=== PATIENT | female | born 1955 | race Caucasian/White ===

== ENCOUNTER 2016-09-30 17:22 | Emergency (ER) | payer OTHER, MEDICAID ==
[2016-09-30 17:28] VITALS: BP 123/68; BMI 34.9
--- NOTE | 2016-09-30 17:39 | DR.GENAD ---
HPI - PCP Primary Care Physician: miguel ángel - HPI Comment HPI Comment: PATIENT NOTED BY HOME HEALTH NURSE TO BE SOB AND APPERARING. SENT HER TO ED. SHE WEAK AND SOB AND IS NAUSEATED AND HAVING ABDOMINAL PAIN. FEVER AT HOME. COUGHING AND SLIGHTLY CONGESTED. - Complaint/Symptoms Chief Complaint Doctors Comments: SOB, LOWGRADE FEVER, CONGESTION AND ABDOMINAL PAIN TIMES ONE DAY. Chief Complaint:: abd pain and flu sx ems stated that the home health aid stated she was breathing funny and called them. - Nurses notes reviewed Nurses Notes Review: Yes - Source History Provided: Patient - Mode of Arrival Mode of Arrival: Ambulatory - Timing Onset of Chief Complaint: 09/29/16 Came on: Suddenly - Duration Duration: Constant Duration: Days - Severity Severity: Moderate PMH - PMH Past Medical History: Yes Past Medical History: Diabetes, Dyslipidemia, Hypertension Past Surgical History: No - Family History History of Family Medical Conditions: Yes Family Medical History: Diabetes Mellitus, Hypertension - Social History Does patient currently use any type of tobacco product: No Have you used tobacco products in the last 12 months: No Type of Tobacco Use: None Does any household member use tobacco: No Alcohol Use: None Do you use any recreational Drugs:: No Lives With: Family Lives Where: Home - infectious screening In the last 2 months have you had wt loss of >10#?: NO Have you had fever, night sweats or hemotysis?: No Have you traveled outside the country in the last 6 months?: No Isolation: Standard ROS - Review of Systems Constitutional: Fever, Weakness, Fatigue. negative: Chills, Diaphoresis Eyes: No Symptoms Reported. negative: Eye Pain, Discharge ENTM: Nose Congestion. negative: Ear Pain, Nose Discharge, Throat Pain Respiratoy: Productive Cough, Short of Breath, Wheezing. negative: Hemoptysis Cardiovascular: No Symptoms Reported. negative: Chest Pain, Edema Gastrointestinal/Abdominal: Abdominal Pain, Nausea, Vomiting. negative: Constipation, Diarrhea Genitourinary: No Symptoms Reported. negative: Dysuria, Frequency, Hematuria Neurological: Headache, Weakness, Dizziness Musculoskeletal: Muscle Pain Integumentary: No Symptoms Reported Hematologic/Lymphatic: No Symptoms Reported Endocrine: No Symptoms Reported All Other Systems: Reviewed and Negative PE - Vital Signs Vitals: Temperature 99.2 F Pulse Rate 96 Respiratory Rate 18 Blood Pressure 123/68 O2 Sat by Pulse Oximetry 100 - General Limitations: No Limitations General Appearance: Alert - Head Head Exam: Normal Inspection - Eyes Eye exam: Normal Appearance - ENT ENT Exam: Normal External Ear Exam External Ear Exam: Normal External Inspection TM/Canal Exam: Bilateral Normal Nose Exam: Normal Nose Exam Mouth Exam: Normal Inspection Throat Exam: Normal Inspection - Neck Neck Exam: Trachea Midline. negative: Tenderness, Meningismus, Lymphadenopathy - Chest Chest Inspection: Symmetric Chest Wall Rise - Respiratory Respiratory Exam: Normal Lung Sounds Bilat Respiratory Exam: Bilateral Rhonchi, Lower Rhonchi - Cardiovascular Cardiovascular Exam: Regular Rate, Normal Rhythm, Normal Heart Sounds - Abdominal Exam Abdominal Exam: Normal Bowel Sounds, Soft. negative: Tenderness - Extremities Extremities Exam: Normal Inspection - Back Back Exam: Normal Inspection - Neurologic Neurological Exam: Alert, Oriented X3, CN II-XII Intact - Psychiatric Psychiatric Exam: Normal Affect, Normal Mood - Skin Skin Exam: Normal Color MDM - Differential Diagnosis Differential Diagnosis: BRONCHITIS, PNEUMONIA, DYSPNEA, CHF Course - Treatment Treatment: SEE ORDERS. - Education/Counseling Education/Counseling: Patient, Education Educated On: Diagnosis, Needs for Follow Up ROR - Labs Reviewed Laboratory Results Reviewed?: Yes Result Diagrams: 09/30/16 17:55 09/30/16 17:55 Laboratory: WBC 6.9 X10^3/uL (3.6-10.0) 09/30/16 17:55 RBC 4.30 X10^6/uL (3.5-5.4) 09/30/16 17:55 Hgb 12.9 g/dL (12.0-16.0) 09/30/16 17:55 Hct 38.6 % (36.0-47.0) 09/30/16 17:55 MCV 89.9 fL (80.0-100.0) 09/30/16 17:55 MCH 29.9 pg (27.0-34.0) 09/30/16 17:55 MCHC 33.3 g/dL (33.0-35.0) 09/30/16 17:55 RDW 12.8 % (11.6-16.5) 09/30/16 17:55 Plt Count 284 X10^3/uL (150.0-450.0) 09/30/16 17:55 MPV 7.7 fL (7.4-11.0) 09/30/16 17:55 Neut % 53.7 % (42.0-75.0) 09/30/16 17:55 Lymph % 29.0 % (21.0-51.0) 09/30/16 17:55 [place] % 12.6 % (0.0-13.0) 09/30/16 17:55 Eos % 3.8 % (0.9-2.9) H 09/30/16 17:55 Baso % 0.9 % (0.2-1.0) 09/30/16 17:55 Neut # 3.7 x10^3/uL (2.2-4.8) 09/30/16 17:55 Lymph # 2.0 X10^3/uL (1.3-2.9) 09/30/16 17:55 [place] # 0.9 x10^3/uL (0.3-0.8) H 09/30/16 17:55 Eos # 0.3 x10^3/uL (0.0-0.2) H 09/30/16 17:55 Baso # 0.1 X10^3/uL (0.0-0.1) 09/30/16 17:55 Absolute Nucleated RBC 0.0 /100WBC 09/30/16 17:55 Sodium 131 mmol/L (136-145) L 09/30/16 17:55 Corrected Sodium 139 mmol/L (136-145) 09/30/16 17:55 Potassium 3.9 mmol/L (3.5-5.1) 09/30/16 17:55 Chloride 96 mmol/L (98-107) L 09/30/16 17:55 Carbon Dioxide 23.7 mmol/L (21-32) 09/30/16 17:55 BUN 12 mg/dL (7-18) 09/30/16 17:55 Creatinine 0.91 mg/dL (0.55-1.02) 09/30/16 17:55 Est GFR (MDRD) Af Amer > 60 (>60) 09/30/16 17:55 Est GFR (MDRD) Non-Af > 60 (>60) 09/30/16 17:55 Glucose 422 mg/dL (65-99) H 09/30/16 17:55 Calcium 8.5 mg/dL (8.5-10.1) 09/30/16 17:55 Corrected Calcium 9.2 mg/dL (8.5-10.1) 09/30/16 17:55 Total Bilirubin 0.20 mg/dL (0.2-1.0) 09/30/16 17:55 AST 21 Units/L (15-37) 09/30/16 17:55 ALT 33 Units/L (12-78) 09/30/16 17:55 Alkaline Phosphatase 129 Units/L (46-116) H 09/30/16 17:55 Total Protein 6.9 g/dL (6.4-8.2) 09/30/16 17:55 Albumin 3.1 g/dL (3.4-5.0) L 09/30/16 17:55 Globulin 3.8 g/dL (2.5-4.5) 09/30/16 17:55 Albumin/Globulin Ratio 0.8 Ratio (1.1-2.1) L 09/30/16 17:55 Acetone, Semi-Quant Negative (NEGATIVE) 09/30/16 18:38 - XRAY XRAY Interpreted by: Radiologist XRAY Findings: REPORT DISCUSS WITH PATIENT. - Diagnosis Discharge Problem: Hyperglycemia, Bronchitis Dyspnea Qualifiers: Dyspnea type: shortness of breath Qualified Code(s): R06.02 - Shortness of breath - Discharge Plan Disposition: 01 HOME, SELF-CARE Condition: Stable Prescriptions: Amoxicillin [Amoxil 875 mg] 875 mg PO BID #14 tab - Follow ups/Referrals Follow ups/Referrals: Brian Robb [Primary Care Provider] - 3 days - Instructions Instructions: Hyperglycemia, Shortness of Breath, [id number], Acute Bronchitis
--- NOTE | 2016-09-30 18:01 | RAD ---
HISTORY: Chest pain Study: Portable chest Comparison: None Findings: The trachea is midline. The cardiac silhouette is unremarkable. The lungs are clear without focal infiltrate or effusion. The bony thorax is unremarkable. IMPRESSION: 1. No acute cardiopulmonary disease. Reported By:
[2016-09-30 18:08] LABS: BASOPHILS # (AUTO) 0.1 X10^3/uL (0.0-0.1); BASOPHILS % (AUTO) 0.9 % (0.2-1.0); EOSINOPHILS # (AUTO) 0.3 x10^3/uL (0.0-0.2); EOSINOPHILS % (AUTO) 3.8 % (0.9-2.9); HEMATOCRIT 38.6 % (36.0-47.0); HEMOGLOBIN 12.9 g/dL (12.0-16.0); MEAN CORPUSCULAR HEMOGLOBIN 29.9 pg (27.0-34.0); MEAN CORPUSCULAR HGB CONC 33.3 g/dL (33.0-35.0); MEAN CORPUSCULAR VOLUME 89.9 fL (80.0-100.0); MEAN PLATELET VOLUME 7.7 fL (7.4-11.0); MONOCYTES # (AUTO) 0.9 x10^3/uL (0.3-0.8); MONOCYTES % (AUTO) 12.6 % (0.0-13.0); NEUTROPHILS # (AUTO) 3.7 x10^3/uL (2.2-4.8); NEUTROPHILS % (AUTO) 53.7 % (42.0-75.0); PLATELET COUNT 284 X10^3/uL (150.0-450.0); RED CELL DISTRIBUTION WIDTH 12.8 % (11.6-16.5); WHITE BLOOD COUNT 6.9 X10^3/uL (3.6-10.0)
[2016-09-30 18:16] LABS: ALANINE AMINOTRANSFERASE 33 Units/L (12-78); ALBUMIN 3.1 g/dL (3.4-5.0); ALKALINE PHOSPHATASE 129 Units/L (46-116); ASPARTATE AMINO TRANSFERASE 21 Units/L (15-37); BLOOD UREA NITROGEN 12 mg/dL (7-18); CALCIUM 8.5 mg/dL (8.5-10.1); CARBON DIOXIDE 23.7 mmol/L (21-32); CHLORIDE 96 mmol/L (98-107); COR CA(FOR HYPOALB) 9.2 mg/dL (8.5-10.1); COR NA(FOR HYPERGLY) 139 mmol/L (136-145); CREATININE 0.91 mg/dL (0.55-1.02); GLUCOSE 422 mg/dL (65-99); SODIUM 131 mmol/L (136-145); TOTAL PROTEIN 6.9 g/dL (6.4-8.2); eGFR BLACK RACES > 60 (>60); eGFR NON BLACK RACES > 60 (>60)
[2016-09-30] MEDS ORDERED: HUMULIN R SUBCUT ONE (18:53)
[2016-09-30] MEDS ORDERED: AMOXIL CAP 500 MG PO ONE ×2 (19:04→19:08)
[2016-09-30] MEDS ORDERED: SNACK - Diabetic Appropriate PO SCH (20:00)
== END 2016-09-30 19:12 | disposition home or self-care (01) ==
LOC: ER 17:22
DX: J40 Bronchitis, not specified as acute or chronic (principal); R06.02 Shortness of breath; R73.9 Hyperglycemia, unspecified
CPT/HCPCS: 36415; 71010; 80053; 82009; 85025; 99283

== ENCOUNTER 2018-01-19 08:47 | Inpatient (IN) ==
--- NOTE | 2018-01-19 09:43 | RAD ---
Exam: Portable chest History: 62-year-old female with lethargy and elevated blood sugar. Hypertension. Comparison: Previous chest radiograph from 09/30/2016 Findings: Overall heart size and pulmonary vasculature within normal limits. Shallow inspiration with minimal c ompressive changes at the right base. No significant effusion on either side. Impression: Shallow inspiration. However no acute cardiopulmonary abnormality is seen on this exam Reported By:
--- NOTE | 2018-01-19 09:45 | CT ---
History: Altered mental status and elevated blood sugar Study: CT head without contrast. Sagittal and coronal reformations were provided. Comparison: None Findings: The ventricles and sulci are minimally prominent without mass effect. There is mild periven tricular white matter low attenuation. There is hyperostosis frontalis interna. There is mucosal thic kening in the maxillary and ethmoid and sphenoid sinuses. No fluid level is demonstrated. Impression: 1. No acute intracranial disease demonstrated 2. Mild paranasal sinus disease Reported By:
[2018-01-19 10:00] LABS: BILIRUBIN,URINE NEGATIVE (NEGATIVE); BLOOD/HEMOGLOBIN,URINE 1+ (NEGATIVE); GLUCOSE, URINE 3+ (NEGATIVE); KETONES,URINE 2+ (NEGATIVE); LEUKOCYTE ESTERASE ,URINE 1+ (NEGATIVE); NITRITES,URINE NEGATIVE (NEGATIVE); PROTEIN,URINE 1+ (NEGATIVE); UROBILINOGEN,URINE NORMAL (NORMAL)
[2018-01-19 10:04] LABS: BASOPHILS # (AUTO) 0.1 X10^3/uL (0.0-0.1); BASOPHILS % (AUTO) 0.3 % (0.2-1.0); HEMATOCRIT 39.6 % (36.0-47.0); HEMOGLOBIN 13.8 g/dL (12.0-16.0); LYMPHOCYTES # (AUTO) 1.8 X10^3/uL (1.3-2.9); LYMPHOCYTES % (AUTO) 9.5 % (21.0-51.0); MEAN CORPUSCULAR HEMOGLOBIN 31.7 pg (27.0-34.0); MEAN CORPUSCULAR HGB CONC 34.8 g/dL (33.0-35.0); MEAN CORPUSCULAR VOLUME 91.1 fL (80.0-100.0); MONOCYTES # (AUTO) 0.9 x10^3/uL (0.3-0.8); MONOCYTES % (AUTO) 4.6 % (0.0-13.0); NEUTROPHILS # (AUTO) 15.9 x10^3/uL (2.2-4.8); NEUTROPHILS % (AUTO) 85.6 % (42.0-75.0); PLATELET COUNT 273 X10^3/uL (150.0-450.0); RED BLOOD COUNT 4.35 X10^6/uL (3.5-5.4); RED CELL DISTRIBUTION WIDTH 13.2 % (11.6-16.5); WHITE BLOOD COUNT 18.6 X10^3/uL (3.6-10.0)
[2018-01-19 10:06] LABS: ALANINE AMINOTRANSFERASE 30 Units/L (12-78); ALKALINE PHOSPHATASE 55 Units/L (46-116); ASPARTATE AMINO TRANSFERASE 26 Units/L (15-37); BLOOD UREA NITROGEN 11 mg/dL (7-18); CALCIUM 9.4 mg/dL (8.5-10.1); CARBON DIOXIDE 22.3 mmol/L (21-32); CHLORIDE 101 mmol/L (98-107); COR CA(FOR HYPOALB) 10.2 mg/dL (8.5-10.1); COR NA(FOR HYPERGLY) 136 mmol/L (136-145); CREATININE 0.98 mg/dL (0.55-1.02); SODIUM 134 mmol/L (136-145); eGFR NON BLACK RACES > 60 (>60)
[2018-01-19 10:07] LABS: APPEARANCE,URINE SLIGHTLY HAZY (CLEAR); COLOR,URINE YELLOW (YELLOW)
[2018-01-19 10:08] LABS: BACTERIA,URINE TRACE /HPF (NEGATIVE); HYALINE CASTS, URINE FEW /LPF (NEGATIVE); MUCUS,URINE FEW /HPF (NEGATIVE); SQUAMOUS EPITHELIAL CELL,UR FEW /HPF (NEGATIVE)
[2018-01-19 10:09] LABS: PLATELET MORPHOLOGY COMMENT NORMAL (NORMAL)
--- NOTE | 2018-01-19 10:34 | DR.AMS ---
HPI Time Seen Time seen: 08:52 PCP Primary Care Physician: ELIGIO Complaint Cheif Complaint Doctors Comments: Noted to be since yesterday. FBS today was 132 / She denies polydipsia or polyuria. Chief Complaint:: PT'S FAMILY C/O PT HAS BEEN ACTING "LETHARGIC" AND HER SUGAR HAS BEEN HIGH. FAMILY STATES HER SUGAR WAS 132 THIS AM. PT'S FAMILY STATES SHE STARTED ACTING FUNNY YESTERDAY AROUND 1730. NOTED PT TO HAVE SLURRED SPEECH, WEAKNESS, FATIGUE, AND PINPOINT PUPILS. PT'S FAMILY STATES SHE IS USUALLY A INDEPENDENT PERSON. Source History Provided: Patient and Family Member Mode of Arrival Mode of Arrival: Ambulatory Timing Onset of Chief Complaint: 01/18/18 Came On: Gradually Symptoms: Unchanged Symptom Onset: Known Onset of Symptoms Start Date: 01/18/18 Associated Signs and Symptoms Associated Signs and Symptoms: Confusion PMH PMH Past Medical History: Yes Past Medical History: Diabetes, Dyslipidemia and Hypertension Past Medical History Comment: MR Past Surgical History: Yes Past Surgical History Comment: TUBALIGATION Family History History of Family Medical Conditions: Yes Family Medical History: Diabetes Mellitus and Hypertension Social History Does any household member use tobacco: No Alcohol Use: None Do you use any recreational Drugs:: No Lives With: Family Lives Where: Home infectious screening In the last 2 months have you had wt loss of >10#?: NO Have you had fever, night sweats or hemotysis?: No Have you traveled outside the country in the last 6 months?: No Isolation: Standard ROS Review of Systems Neurological: Other (congused) Integumentary: Change in Color (mid left leg is pinK ) PE Vitals Vital Signs: Temp Pulse Pulse Resp BP BP Pulse Ox 01/19/18 11:30 88 20 125/75 95 01/19/18 10:45 86 22 119/56 95 01/19/18 09:59 85 22 134/60 96 01/19/18 09:50 87 22 131/60 95 01/19/18 08:59 98 H 18 126/61 95 01/19/18 08:48 97.9 F 106 H 20 118/56 94 L 09/30/16 17:23 123/68 General Limitations: Altered Mental Status General Appearance: Alert; negative Anxious and In Distress Head Head Exam: Normal Inspection, Atraumatic, Normocephalic and Other Eyes Eye exam: Normal Appearance, PERRL and EOMI ENT ENT Exam: Normal Exam TM/Canal Exam: Bilateral: Normal Nose Exam: Normal Nose Exam; negative Sinus Tenderness Throat Exam: Normal Inspection Neck Neck Exam: Normal Inspection, Full ROM and Trachea Midline Chest Chest Inspection: Normal Inspection and Symmetric Chest Wall Rise Respiratory Respiratory Exam: Normal Lung Sounds Bilat; negative Accessory Muscle Use Cardiovascular Cardiovascular Exam: Regular Rate, Normal Rhythm, +S1 and +S2 Abdominal Exam Abdominal Exam: Normal Inspection, Normal Bowel Sounds and Soft; negative Tenderness Back Back Exam: Normal Inspection Neurological Neurological Exam: Alert Patient Oriented To: Person Speech: Fluid Speech Psychological Psychiatric Exam: Flat Affect; negative Agitated and Manic Skin Skin Exam: Dry and Erythema (Mid Lt. leg) COURSE Reevaluation 1st: Unchanged 2nd: Unchanged Consultation Consultation Comments: Admit to inpt. status for Dr. Robb. Placed her on Fort[facility] + CIpro ROR Labs Reviewed Laboratory Results Reviewed?: Yes Result Diagrams: 01/19/18 09:49 01/19/18 09:49 Laboratory: WBC 18.6 X10^3/uL (3.6-10.0) H 01/19/18 09:49 RBC 4.35 X10^6/uL (3.5-5.4) 01/19/18 09:49 Hgb 13.8 g/dL (12.0-16.0) 01/19/18 09:49 Hct 39.6 % (36.0-47.0) 01/19/18 09:49 MCV 91.1 fL (80.0-100.0) 01/19/18 09:49 MCH 31.7 pg (27.0-34.0) 01/19/18 09:49 MCHC 34.8 g/dL (33.0-35.0) 01/19/18 09:49 RDW 13.2 % (11.6-16.5) 01/19/18 09:49 Plt Count 273 X10^3/uL (150.0-450.0) 01/19/18 09:49 Plt Count Comment Adequate (ADEQUATE) 01/19/18 09:49 MPV 8.0 fL (7.4-11.0) 01/19/18 09:49 Neut % (Auto) 85.6 % (42.0-75.0) H 01/19/18 09:49 Lymph % (Auto) 9.5 % (21.0-51.0) L 01/19/18 09:49 [place] % (Auto) 4.6 % (0.0-13.0) 01/19/18 09:49 Eos % (Auto) 0.0 % (0.9-2.9) L 01/19/18 09:49 Baso % (Auto) 0.3 % (0.2-1.0) 01/19/18 09:49 Neut # (Auto) 15.9 x10^3/uL (2.2-4.8) H 01/19/18 09:49 Lymph # (Auto) 1.8 X10^3/uL (1.3-2.9) 01/19/18 09:49 [place] # (Auto) 0.9 x10^3/uL (0.3-0.8) H 01/19/18 09:49 Eos # (Auto) 0.0 x10^3/uL (0.0-0.2) 01/19/18 09:49 Baso # (Auto) 0.1 X10^3/uL (0.0-0.1) 01/19/18 09:49 Absolute Nucleated RBC 0.0 /100WBC 01/19/18 09:49 Plt Clumps, EDTA Rare 01/19/18 09:49 Plt Morphology Comment Normal (NORMAL) 01/19/18 09:49 RBC Morphology Normal (NORMAL) 01/19/18 09:49 INR Target Range - 01/19/18 10:35 INR 1.17 (0.8-1.3) 01/19/18 10:35 APTT 30.9 SECONDS (22.9-36.5) 01/19/18 10:35 PTT Comment - 01/19/18 10:35 Sodium 134 mmol/L (136-145) L 01/19/18 09:49 Corrected Sodium 136 mmol/L (136-145) 01/19/18 09:49 Potassium 4.2 mmol/L (3.5-5.1) 01/19/18 09:49 Chloride 101 mmol/L (98-107) 01/19/18 09:49 Carbon Dioxide 22.3 mmol/L (21-32) 01/19/18 09:49 BUN 11 mg/dL (7-18) 01/19/18 09:49 Creatinine 0.98 mg/dL (0.55-1.02) 01/19/18 09:49 Est GFR (MDRD) Af Amer > 60 (>60) 01/19/18 09:49 Est GFR (MDRD) Non-Af > 60 (>60) 01/19/18 09:49 Glucose 184 mg/dL (65-99) H 01/19/18 09:49 POC Glucose (mg/dL) 196 mg/dL (65-99) H 01/19/18 08:49 Calcium 9.4 mg/dL (8.5-10.1) 01/19/18 09:49 Corrected Calcium 10.2 mg/dL (8.5-10.1) H 01/19/18 09:49 Total Bilirubin 0.40 mg/dL (0.2-1.0) 01/19/18 09:49 AST 26 Units/L (15-37) 01/19/18 09:49 ALT 30 Units/L (12-78) 01/19/18 09:49 Alkaline Phosphatase 55 Units/L (46-116) 01/19/18 09:49 Creatine Kinase 621 Units/L (26-192) H 01/19/18 10:35 CK-MB (CK-2) 3.4 ng/mL (0-4.0) 01/19/18 10:35 CK/CKMB % Calc 0.6 % (<4) 01/19/18 10:35 Troponin I < 0.02 ng/mL (0-1.5) 01/19/18 10:35 Total Protein 7.0 g/dL (6.4-8.2) 01/19/18 09:49 Albumin 3.0 g/dL (3.4-5.0) L 01/19/18 09:49 Globulin 4.0 g/dL (2.5-4.5) 01/19/18 09:49 Albumin/Globulin Ratio 0.8 Ratio (1.1-2.1) L 01/19/18 09:49 Specimen Type Clean catch urine 01/19/18 09:43 Urine Color Yellow (YELLOW) 01/19/18 09:43 Urine Appearance Slightly hazy (CLEAR) 01/19/18 09:43 Urine pH 6.0 (5.0 - 8.0) 01/19/18 09:43 Ur Specific [place] 1.020 (1.000-1.030) 01/19/18 09:43 Urine Protein 1+ (NEGATIVE) 01/19/18 09:43 Urine Glucose (UA) 3+ (NEGATIVE) 01/19/18 09:43 Urine Ketones 2+ (NEGATIVE) 01/19/18 09:43 Urine Occult Blood 1+ (NEGATIVE) 01/19/18 09:43 Urine Nitrite Negative (NEGATIVE) 01/19/18 09:43 Urine Bilirubin Negative (NEGATIVE) 01/19/18 09:43 Urine Urobilinogen Normal (NORMAL) 01/19/18 09:43 Ur Leukocyte Esterase 1+ (NEGATIVE) 01/19/18 09:43 Urine RBC 3-5 /HPF (NONE SEEN) 01/19/18 09:43 Urine WBC 3-5 /HPF (NONE SEEN) 01/19/18 09:43 Ur Squamous Epith Cells Few /HPF (NEGATIVE) 01/19/18 09:43 Urine Bacteria Trace /HPF (NEGATIVE) 01/19/18 09:43 Hyaline Casts Few /LPF (NEGATIVE) 01/19/18 09:43 Urine Mucus Few /HPF (NEGATIVE) 01/19/18 09:43 Ur Culture Indicated? No/not indicated 01/19/18 09:43 XRAY XRAY Findings: Brain CT: No acute intracranial pathology, paranasal sinus dz; CXR: NAD EKG Rate: 96 [place]wl: Normal Rhythm: NSR Block: None Hypertrophy: None ST: Old (Q waves in III, aVF)
[2018-01-19 11:14] LABS: CKMB % 0.6 % (<4); CREATINE KINASE 621 Units/L (26-192); CREATINE KINASE MB 3.4 ng/mL (0-4.0); TROPONIN I < 0.02 ng/mL (0-1.5)
[2018-01-19] MEDS: LEVAQUIN PREMIX IV 500 MG 500 MG/100 ML BAG IV SCH (13:35)
[2018-01-19] MEDS: NS 1000 ML 1,000 ML IV SCH ×2 (13:35→22:03)
[2018-01-19] MEDS: DEPAKOTE D.R. TAB PO SCH ×2 (13:36→22:04)
[2018-01-19 13:58] VITALS: BMI 32.2
[2018-01-19] MEDS: TYLENOL 500 MG TAB EXTRA STRENGTH PO PRN (14:48)
[2018-01-19] MEDS: FORTAZ or TAZICEF VIAL INJ 1 G in NS 100 ML IV + SPIKE MINIBAG* 100 ML IV SCH ×2 (16:10→22:04)
[2018-01-19] MEDS ORDERED: GLUCOPHAGE ONE (20:06)
[2018-01-19] MEDS: GLUCOTROL PO SCH (20:50)
[2018-01-19] MEDS: GLUCOPHAGE PO SCH (20:50)
[2018-01-19] MEDS: THIORIDAZINE 50 MG PO SCH (20:51)
[2018-01-19] MEDS: ZETIA TAB 10 MG PO SCH (20:51)
[2018-01-19] MEDS: ZOCOR TAB 10 MG PO SCH (20:52)
[2018-01-19] MEDS ORDERED: PATIENT'S HOME MEDICATION (Simvastatin 1 TAB) PO SCH (21:00)
[2018-01-19] MEDS ORDERED: RISPERIDONE 4 MG PO SCH (21:00)
[2018-01-20] MEDS: NS 1000 ML 1,000 ML IV SCH ×3 (05:14→21:08)
[2018-01-20 05:32] LABS: BASOPHILS % (AUTO) 0.4 % (0.2-1.0); HEMATOCRIT 34.3 % (36.0-47.0); HEMOGLOBIN 11.7 g/dL (12.0-16.0); LYMPHOCYTES # (AUTO) 1.7 X10^3/uL (1.3-2.9); MEAN CORPUSCULAR HEMOGLOBIN 31.1 pg (27.0-34.0); MEAN CORPUSCULAR VOLUME 91.5 fL (80.0-100.0); MEAN PLATELET VOLUME 7.7 fL (7.4-11.0); MONOCYTES # (AUTO) 0.7 x10^3/uL (0.3-0.8); MONOCYTES % (AUTO) 5.7 % (0.0-13.0); NEUTROPHILS # (AUTO) 9.9 x10^3/uL (2.2-4.8); NEUTROPHILS % (AUTO) 79.9 % (42.0-75.0); PLATELET COUNT 232 X10^3/uL (150.0-450.0); RED BLOOD COUNT 3.75 X10^6/uL (3.5-5.4); RED CELL DISTRIBUTION WIDTH 13.2 % (11.6-16.5); WHITE BLOOD COUNT 12.4 X10^3/uL (3.6-10.0)
[2018-01-20 05:52] LABS: ALANINE AMINOTRANSFERASE 25 Units/L (12-78); ALBUMIN 2.3 g/dL (3.4-5.0); ALKALINE PHOSPHATASE 48 Units/L (46-116); ASPARTATE AMINO TRANSFERASE 23 Units/L (15-37); BLOOD UREA NITROGEN 7 mg/dL (7-18); CALCIUM 8.4 mg/dL (8.5-10.1); CARBON DIOXIDE 25.1 mmol/L (21-32); CHLORIDE 105 mmol/L (98-107); COR CA(FOR HYPOALB) 9.8 mg/dL (8.5-10.1); COR NA(FOR HYPERGLY) 138 mmol/L (136-145); CREATININE 0.85 mg/dL (0.55-1.02); SODIUM 138 mmol/L (136-145); TOTAL PROTEIN 6.1 g/dL (6.4-8.2); eGFR NON BLACK RACES > 60 (>60)
[2018-01-20] MEDS: FORTAZ or TAZICEF VIAL INJ 1 G in NS 100 ML IV + SPIKE MINIBAG* 100 ML IV SCH ×3 (06:00→21:09)
[2018-01-20] MEDS ORDERED: GLUCOPHAGE ONE ×2 (07:13→20:59)
[2018-01-20] MEDS: DEPAKOTE D.R. TAB PO SCH ×3 (08:32→21:09)
[2018-01-20] MEDS: GLUCOPHAGE PO SCH ×2 (08:33→21:08)
[2018-01-20] MEDS: GLUCOTROL PO SCH ×2 (08:34→21:08)
[2018-01-20] MEDS: LEVAQUIN PREMIX IV 500 MG 500 MG/100 ML BAG IV SCH (08:34)
[2018-01-20] MEDS: TOPROL XL PO SCH (08:35)
[2018-01-20] MEDS: RisperDAL TAB 1 MG PO SCH (08:35)
[2018-01-20] MEDS: OXYBUTYNIN CHLORIDE ER PO SCH (08:35)
[2018-01-20] MEDS: THIORIDAZINE 50 MG PO SCH ×2 (08:38→21:08)
[2018-01-20] MEDS ORDERED: PATIENT'S HOME MEDICATION (Oxybutynin Chloride [Oxybutynin Chloride] 10 MG) PO SCH (09:00)
[2018-01-20] MEDS ORDERED: EZETIMIBE PO SCH (09:00)
[2018-01-20] MEDS: HumuLIN R SUBCUT PRN (14:09)
[2018-01-20] MEDS: LOVENOX INJ 30 MG SYR SC SCH (18:14)
[2018-01-20] MEDS: SNACK - Diabetic Appropriate PO SCH (21:08)
[2018-01-20] MEDS: ZETIA TAB 10 MG PO SCH (21:08)
[2018-01-20] MEDS: ZOCOR TAB 10 MG PO SCH (21:09)
[2018-01-21] MEDS: NS 1000 ML 1,000 ML IV SCH ×3 (05:35→22:48)
[2018-01-21] MEDS: FORTAZ or TAZICEF VIAL INJ 1 G in NS 100 ML IV + SPIKE MINIBAG* 100 ML IV SCH ×3 (06:12→22:50)
[2018-01-21 06:33] LABS: BASOPHILS % (AUTO) 0.3 % (0.2-1.0); EOSINOPHILS # (AUTO) 0.1 x10^3/uL (0.0-0.2); EOSINOPHILS % (AUTO) 1.5 % (0.9-2.9); HEMATOCRIT 32.1 % (36.0-47.0); HEMOGLOBIN 11.1 g/dL (12.0-16.0); LYMPHOCYTES # (AUTO) 1.7 X10^3/uL (1.3-2.9); LYMPHOCYTES % (AUTO) 17.7 % (21.0-51.0); MEAN CORPUSCULAR HEMOGLOBIN 31.6 pg (27.0-34.0); MEAN CORPUSCULAR HGB CONC 34.5 g/dL (33.0-35.0); MEAN CORPUSCULAR VOLUME 91.7 fL (80.0-100.0); MONOCYTES # (AUTO) 0.6 x10^3/uL (0.3-0.8); MONOCYTES % (AUTO) 6.4 % (0.0-13.0); NEUTROPHILS # (AUTO) 7.3 x10^3/uL (2.2-4.8); NEUTROPHILS % (AUTO) 74.1 % (42.0-75.0); PLATELET COUNT 224 X10^3/uL (150.0-450.0); RED CELL DISTRIBUTION WIDTH 13.6 % (11.6-16.5); WHITE BLOOD COUNT 9.9 X10^3/uL (3.6-10.0)
[2018-01-21 06:39] LABS: ALANINE AMINOTRANSFERASE 26 Units/L (12-78); ALBUMIN 2.1 g/dL (3.4-5.0); ALKALINE PHOSPHATASE 53 Units/L (46-116); ASPARTATE AMINO TRANSFERASE 22 Units/L (15-37); BLOOD UREA NITROGEN 5 mg/dL (7-18); CALCIUM 8.5 mg/dL (8.5-10.1); CARBON DIOXIDE 23.5 mmol/L (21-32); CHLORIDE 107 mmol/L (98-107); CREATININE 0.63 mg/dL (0.55-1.02); SODIUM 140 mmol/L (136-145); TOTAL PROTEIN 6.2 g/dL (6.4-8.2); eGFR NON BLACK RACES > 60 (>60)
[2018-01-21] MEDS ORDERED: GLUCOPHAGE ONE ×2 (08:40→19:48)
[2018-01-21] MEDS: GLUCOPHAGE PO SCH ×2 (09:30→21:00)
[2018-01-21] MEDS: RisperDAL TAB 1 MG PO SCH (09:30)
[2018-01-21] MEDS: GLUCOTROL PO SCH ×2 (09:30→21:00)
[2018-01-21] MEDS: THIORIDAZINE 50 MG PO SCH ×2 (09:30→21:00)
[2018-01-21] MEDS: LEVAQUIN PREMIX IV 500 MG 500 MG/100 ML BAG IV SCH (09:30)
[2018-01-21] MEDS: OXYBUTYNIN CHLORIDE ER PO SCH (09:30)
[2018-01-21] MEDS: LOVENOX INJ 30 MG SYR SC SCH (09:30)
[2018-01-21] MEDS: DEPAKOTE D.R. TAB PO SCH ×3 (09:30→22:50)
[2018-01-21] MEDS: TOPROL XL PO SCH (09:30)
[2018-01-21] MEDS: ZETIA TAB 10 MG PO SCH (21:00)
[2018-01-21] MEDS: SNACK - Diabetic Appropriate PO SCH (21:00)
[2018-01-21] MEDS: ZOCOR TAB 10 MG PO SCH (21:00)
[2018-01-22] MEDS: NS 1000 ML 1,000 ML IV SCH ×2 (05:22→14:06)
[2018-01-22] MEDS: DEPAKOTE D.R. TAB PO SCH ×2 (06:11→14:09)
[2018-01-22] MEDS: FORTAZ or TAZICEF VIAL INJ 1 G in NS 100 ML IV + SPIKE MINIBAG* 100 ML IV SCH ×2 (06:11→14:09)
[2018-01-22 06:24] LABS: BASOPHILS % (AUTO) 0.3 % (0.2-1.0); EOSINOPHILS # (AUTO) 0.2 x10^3/uL (0.0-0.2); EOSINOPHILS % (AUTO) 2.8 % (0.9-2.9); HEMATOCRIT 30.4 % (36.0-47.0); HEMOGLOBIN 10.6 g/dL (12.0-16.0); LYMPHOCYTES # (AUTO) 1.7 X10^3/uL (1.3-2.9); LYMPHOCYTES % (AUTO) 23.2 % (21.0-51.0); MEAN CORPUSCULAR HEMOGLOBIN 31.6 pg (27.0-34.0); MEAN CORPUSCULAR HGB CONC 34.8 g/dL (33.0-35.0); MEAN PLATELET VOLUME 7.8 fL (7.4-11.0); MONOCYTES # (AUTO) 0.5 x10^3/uL (0.3-0.8); MONOCYTES % (AUTO) 6.8 % (0.0-13.0); NEUTROPHILS # (AUTO) 4.9 x10^3/uL (2.2-4.8); NEUTROPHILS % (AUTO) 66.9 % (42.0-75.0); PLATELET COUNT 244 X10^3/uL (150.0-450.0); RED BLOOD COUNT 3.34 X10^6/uL (3.5-5.4); RED CELL DISTRIBUTION WIDTH 13.5 % (11.6-16.5); WHITE BLOOD COUNT 7.4 X10^3/uL (3.6-10.0)
[2018-01-22 06:44] LABS: ALANINE AMINOTRANSFERASE 28 Units/L (12-78); ALBUMIN 2.1 g/dL (3.4-5.0); ALKALINE PHOSPHATASE 57 Units/L (46-116); ASPARTATE AMINO TRANSFERASE 17 Units/L (15-37); BLOOD UREA NITROGEN 5 mg/dL (7-18); CALCIUM 8.3 mg/dL (8.5-10.1); CARBON DIOXIDE 25.9 mmol/L (21-32); CHLORIDE 108 mmol/L (98-107); COR CA(FOR HYPOALB) 9.8 mg/dL (8.5-10.1); COR NA(FOR HYPERGLY) 144 mmol/L (136-145); CREATININE 0.59 mg/dL (0.55-1.02); SODIUM 143 mmol/L (136-145); TOTAL PROTEIN 6.1 g/dL (6.4-8.2); eGFR NON BLACK RACES > 60 (>60)
[2018-01-22] MEDS: TYLENOL 500 MG TAB EXTRA STRENGTH PO PRN (07:10)
[2018-01-22] MEDS ORDERED: GLUCOPHAGE ONE (08:41)
[2018-01-22] MEDS: GLUCOTROL PO SCH (09:07)
[2018-01-22] MEDS: LEVAQUIN PREMIX IV 500 MG 500 MG/100 ML BAG IV SCH (09:07)
[2018-01-22] MEDS: TOPROL XL PO SCH (09:07)
[2018-01-22] MEDS: RisperDAL TAB 1 MG PO SCH (09:07)
[2018-01-22] MEDS: GLUCOPHAGE PO SCH (09:07)
[2018-01-22] MEDS: THIORIDAZINE 50 MG PO SCH (09:07)
[2018-01-22] MEDS: OXYBUTYNIN CHLORIDE ER PO SCH (09:08)
[2018-01-22] MEDS: LOVENOX INJ 30 MG SYR SC SCH (09:08)
[2018-01-22] MEDS: HumuLIN R SUBCUT PRN (11:38)
[2018-01-22 16:20] VITALS: BP 117/59
--- NOTE | 2018-01-29 15:24 | DR.H&P ---
H&P - History & Physical for Day of: H&P Date: 01/19/18 - Chief Complaint Chief Complaint: ams, hyperglycemia, weakness - History of Present Illness History of Present Illness: is a 62 year old patient of ours who presented to the emergency room for evaluation of altered mental status. The family stated, She has been acting lethargic and her sugar has been high. They reported that her glucose was 132 this morning. On arrival, patient was noted with slurred speech, weakness, fatigue, and pinpoint pupils. On arrival, vitals were 97.9, 106, 20 94% RA, 118/56. Labs were obtained. Abnormal Labs included the following: WBC 18.6, Glucose 184, Corrected Calcium 10.2, Albumin 3.0, A/G ratio 0.8. Urinalysis revealed: Appearance slightly hazy, Protein 1+, Glucose 3+ , Ketones 2+, Occult Blood 1+, Leukocyte Esterase 1+, RBC 3-5, WBC 3-5, Squamous Epith Cells Few, Bacteria Trace, Hyaline Casts Few, Mucous Few. A brain CT was performed and revealed no acute intracranial disease demonstrated. Mild paranasal sinus disease. Chest x-ray showed shallow inspiration, However, no acute cardiopulmonary abnormality is seen on this exam. EKG revealed sinus rhythm with a heart rate of 96. Patient was admitted for further evaluation of altered mental status and urinary tract infection. NS 1000 ML IV @ 125 MLS/HR was started aggressive IV hydration. Ceftazidime 1 GM IV Q8H and Levaquin 500 MG IV Daily administered for antibiotic therapy. We plan to follow up with AM labs and continue to monitor patient. - Past Medical History Past Medical History: Diabetes, Dyslipidemia, GERD, Hypertension Additional Medical History: MR - Past Surgical History Surgical History: Other (T) - Family History Family Medical History: Diabetes Mellitus, Cancer, [place], Heart Failure, Sudden Cardiac (TUBAL), Hypertension - Social History Does patient currently use any type of tobacco product: No Have you used tobacco products in the last 12 months: No Type of Tobacco Use: None Does any household member use tobacco: No Alcohol Use: None Drug Use: None - Medications Home Medications: No Known Drug Allergies Allergy (Verified 01/19/18 08:48) CONTINUE taking the following medications glipizide 5 mg PO BID 01/19/18 [History] metoprolol succinate 25 mg PO DAILY 01/19/18 [History] oxybutynin chloride 10 mg PO DAILY 01/19/18 [History] risperidone 4 mg PO HS 01/19/18 [History] thioridazine 100 mg PO HS 01/19/18 [History] New Prescriptions levofloxacin [Levaquin] 500 mg PO DAILY #10 tab 01/22/18 [Rx] - Review of Systems Constitutional: Weakness, Malaise Eyes: No Symptoms Reported ENT: No Symptoms Reported Respiratory: No Symptoms Reported Cardiovascular: No Symptoms Reported Gastrointestinal: Abdominal Pain Genitourinary: No Symptoms Reported Musculoskeletal: No Symptoms Reported Skin: No Symptoms Reported Neurological: Weakness, Incoordination, Change in Speech, Confusion - Physical Exam Vital Signs: Temperature 98.4 F Pulse Rate [Left Brachial] 80 Pulse Rate [Apical] 94 Pulse Rate 106 Respiratory Rate 20 Blood Pressure [Right Arm] 138/65 Blood Pressure [Left Arm] 117/59 Blood Pressure 118/56 O2 Sat by Pulse Oximetry 98 Oriented: Person Eyes: Other (PUPILS PINPOINT ) Ear: Normal Nose: Normal Throat: Normal Respiratory: Diminished Throughout Cardiovascular: Normal. negative: S3, S4, Murmur : Normal Auscultation: Bowel Sounds: Normal Palpation: Normal Tenderness: Suprapubic, Mild. negative: Rebound, Guarding, Rigidity Skin: Normal Musculoskeletal: Normal Mood Description: Flat Affect: Quiet Speech Pattern: Unclear, Slurred - Assessment/Plan (1) Urinary tract infection Qualifiers: Urinary tract infection type: acute cystitis Hematuria presence: with hematuria Qualified Code(s): N30.01 - Acute cystitis with hematuria Status: Acute Plan: ADMIT, NORMAL SALINE AT 125ML/HR, FORTAZ IV, LEVAQUIN IV, CONTINUE TO MONITOR (2) Altered mental status Qualifiers: Altered mental status type: transient alteration of awareness Qualified Code(s): R40.4 - Transient alteration of awareness Status: Acute Plan: TREAT UTI, CONTINUE TO MONITOR - Allergies Allergies/Adverse Reactions: Allergies Allergy/AdvReac Type Severity Reaction Status Date / Time No Known Drug Allergies Allergy Verified 01/19/18 08:48
--- NOTE | 2018-02-20 22:13 | DR.CARTERD ---
- Discharge Summary for: Discharge Summary for Date of:: 01/22/18 - Admission Date Date of Admission: 01/19/18 - Admission Diagnoses Admission Diagnosis: (1) Altered mental status (2) Urinary tract infection - Discharge Date Discharge Date: 01/22/18 - Discharge Diagnoses Discharge Diagnosis: (1) Micrococcus Species Sepsis (2) Altered mental status (3) Urinary tract infection - Hospital Course Hospital Course: Ms. Aly presented to the [facility] emergency room for evaluation of altered mental status. The family stated she had been acting lethargic and her sugar had been high. It was 132 the morning of arrival. They stated she started acting funny one day prior around 1730 with slurred speech, weakness, fatigue, and pinpoint pupils. Family stated she was usually an independent person. A brain CT was performed and revealed no acute intracranial disease demonstrated. Mild paranasal sinus disease. Chest x-ray showed shallow inspiration. However no acute cardiopulmonary abnormality was seen. EKG showed sinus rhythm with a heart rate of 96. Medical HX: GERD, UTI, DM II, Tubal. Abnormal labs included: WBC 18.6, Glucose 184, Corrected Calcium 10.2, Albumin 3.0, A/G ratio 0.8. Urinalysis showed: Appearance slightly hazy, Protein 1+, Glucose 3+, Ketones 2+, Occult Blood 1+, Leukocyte Esterase 1+, RBC 3-5, WBC 3-5 , Squamous Epith Cells Few, Bacteria Trace, Hyaline Casts Few, Mucous Few. Patient admitted for further evaluation of altered mental status. NS 1000 ML IV @ 125 MLS/HR was started for aggressive IV hydration. Ceftazidime 1 GM IV Q8H and Levaquin 500 MG IV Daily was also started for antibiotic therapy. We continued to monitor patient. On day two and three, treatment was continued. Patient continued with altered mental status although it was improving each day. Wbc returned to normal limits during the course of her four day hospital stay. On day four, Wbc was 7.4. One of two blood cultures reported Micococcus Species. Organism was sensitive to Levaquin. Patient reported she felt well. Patient was alert and oriented. Vital signs stable. Labs wnl. We planned for discharge with oral Levaquin. Instructions for medications and follow up were discussed with patient and family, both voiced understanding. Patient discharged home in stable condition with family. Labs: Microbiology 01/19/18 13:22 Blood Blood Culture - Final Micrococcus Species - Discharge Medications Discharge Medications: Home Medication List glipizide 5 mg PO BID 01/19/18 [History] metoprolol succinate 25 mg PO DAILY 01/19/18 [History] oxybutynin chloride 10 mg PO DAILY 01/19/18 [History] risperidone 4 mg PO HS 01/19/18 [History] thioridazine 100 mg PO HS 01/19/18 [History] levofloxacin [Levaquin] 500 mg PO DAILY #10 tab 01/22/18 [Rx] Prescriptions: levofloxacin [Levaquin] Brian Robb Home medications Ezetimibe [Zetia] 1 tab PO HS 11/07/14 Risperidone 2 mg PO DAILY 11/07/14 Simvastatin 1 tab PO HS 11/07/14 divalproex 250 mg PO TID 11/07/14 metformin 1,000 mg PO BID 11/07/14 thioridazine 50 mg PO DAILY 11/07/14 - Discharge Disposition Discharge Disposition: Patient is to follow up in our office in one week.
== END 2018-01-22 18:33 | disposition home or self-care (01) | DRG 690 ==
LOC: MED/SURG 09:02 → ER 09:02 → MED/SURG 12:28
PROVIDERS: ADMIT Internal Medicine; ATTEND Internal Medicine
DX: K21.9 Gastro-esophageal reflux disease without esophagitis; R26.89 Other abnormalities of gait and mobility; R94.31 Abnormal electrocardiogram [ECG] [EKG]; R53.1 Weakness; E78.2 Mixed hyperlipidemia; R53.83 Other fatigue; N30.01 Acute cystitis with hematuria; I10 Essential (primary) hypertension; R47.81 Slurred speech; Z79.01 Long term (current) use of anticoagulants; R40.4 Transient alteration of awareness
CPT/HCPCS: 36415; 70450; 71010; 71045; 80053; 81001; 82550; 82553; 84484; 85025; 85610; 85730; 87040; 87086; 93005; 93010; 96365; 97110; 97163; 97167; 97530; 97535; 99284; A4222; G0378; J0713; J1650; J1815; J1956; J7030; J7050

== ENCOUNTER 2019-03-17 13:18 | Observation (INO) ==
--- NOTE | 2019-03-17 14:55 | CT ---
History: Hallucinations and hypertension Study: CT brain without contrast. Sagittal and coronal reformations were provided. Comparison: January 19, 2018 Findings: The ventricles and sulci are normal in size and configuration without mass effect. There is no intracranial hemorrhage or mass or edema. The calvarium is intact with mild hyperostosis frontalis interna. There is mild mucosal thickening in the right maxillary sinus. There is a partially empty sella. There is mild patchy periventricular white matter low attenuation. Impression: 1. No acute intracranial disease 2. Mild periventricular white-matter small-vessel disease 3. Mild right maxillary sinus disease Reported By:
[2019-03-17 15:38] LABS: BASOPHILS % (AUTO) 0.6 % (0.2-1.0); EOSINOPHILS # (AUTO) 0.1 x10^3/uL (0.0-0.2); EOSINOPHILS % (AUTO) 1.4 % (0.9-2.9); HEMATOCRIT 34.6 % (36.0-47.0); HEMOGLOBIN 11.8 g/dL (12.0-16.0); LYMPHOCYTES # (AUTO) 2.1 X10^3/uL (1.3-2.9); LYMPHOCYTES % (AUTO) 30.7 % (21.0-51.0); MEAN CORPUSCULAR HEMOGLOBIN 31.2 pg (27.0-34.0); MEAN CORPUSCULAR VOLUME 91.8 fL (80.0-100.0); MEAN PLATELET VOLUME 7.5 fL (7.4-11.0); MONOCYTES # (AUTO) 0.7 x10^3/uL (0.3-0.8); MONOCYTES % (AUTO) 10.9 % (0.0-13.0); NEUTROPHILS # (AUTO) 3.8 x10^3/uL (2.2-4.8); NEUTROPHILS % (AUTO) 56.4 % (42.0-75.0); PLATELET COUNT 277 X10^3/uL (150.0-450.0); RED BLOOD COUNT 3.77 X10^6/uL (3.5-5.4); RED CELL DISTRIBUTION WIDTH 13.5 % (11.6-16.5); WHITE BLOOD COUNT 6.8 X10^3/uL (3.6-10.0)
[2019-03-17 15:47] LABS: HEMOGLOBIN A1C 6.2 %
[2019-03-17 15:51] LABS: VALPROIC ACID 48.5 ug/mL (50-100)
[2019-03-17 15:56] LABS: ALANINE AMINOTRANSFERASE 17 Units/L (12-78); ALBUMIN 3.1 g/dL (3.4-5.0); ALKALINE PHOSPHATASE 58 Units/L (46-116); ASPARTATE AMINO TRANSFERASE 12 Units/L (15-37); BLOOD UREA NITROGEN 9 mg/dL (7-18); CALCIUM 9.3 mg/dL (8.5-10.1); CARBON DIOXIDE 27.5 mmol/L (21-32); CHLORIDE 100 mmol/L (98-107); COR NA(FOR HYPERGLY) 138 mmol/L (136-145); CREATININE 0.68 mg/dL (0.55-1.02); SODIUM 138 mmol/L (136-145); TOTAL PROTEIN 6.8 g/dL (6.4-8.2); eGFR NON BLACK RACES > 60 (>60)
[2019-03-17 16:10] VITALS: BMI 25.4
[2019-03-17] MEDS: NS 1000 ML 1,000 ML IV SCH (16:52)
[2019-03-17 22:20] LABS: BILIRUBIN,URINE NEGATIVE (NEGATIVE); BLOOD/HEMOGLOBIN,URINE 1+ (NEGATIVE); GLUCOSE, URINE NEGATIVE (NEGATIVE); KETONES,URINE 1+ (NEGATIVE); LEUKOCYTE ESTERASE ,URINE 1+ (NEGATIVE); NITRITES,URINE POSITIVE (NEGATIVE); PROTEIN,URINE NEGATIVE (NEGATIVE); UROBILINOGEN,URINE NORMAL (NORMAL)
[2019-03-17 22:25] LABS: APPEARANCE,URINE HAZY (CLEAR); BACTERIA,URINE 3+ /HPF (NEGATIVE); COLOR,URINE YELLOW (YELLOW); RBC,URINE 0-2 /HPF (0-3); SQUAMOUS EPITHELIAL CELL,UR RARE /HPF (NEGATIVE)
[2019-03-17] MEDS ORDERED: ROCEPHIN VIAL 1 GRAM ONE (22:37)
[2019-03-17] MEDS ORDERED: ROCEPHIN VIAL 1 GRAM IVP SCH (22:45)
[2019-03-18] MEDS: NS 1000 ML 1,000 ML IV SCH ×4 (03:35→19:19)
[2019-03-18 06:09] LABS: BASOPHILS % (AUTO) 0.7 % (0.2-1.0); EOSINOPHILS # (AUTO) 0.1 x10^3/uL (0.0-0.2); EOSINOPHILS % (AUTO) 1.7 % (0.9-2.9); HEMATOCRIT 38.3 % (36.0-47.0); LYMPHOCYTES # (AUTO) 2.6 X10^3/uL (1.3-2.9); LYMPHOCYTES % (AUTO) 41.4 % (21.0-51.0); MEAN CORPUSCULAR HEMOGLOBIN 31.2 pg (27.0-34.0); MEAN CORPUSCULAR HGB CONC 33.9 g/dL (33.0-35.0); MEAN CORPUSCULAR VOLUME 91.8 fL (80.0-100.0); MONOCYTES # (AUTO) 0.6 x10^3/uL (0.3-0.8); MONOCYTES % (AUTO) 9.1 % (0.0-13.0); NEUTROPHILS % (AUTO) 47.1 % (42.0-75.0); PLATELET COUNT 289 X10^3/uL (150.0-450.0); RED BLOOD COUNT 4.17 X10^6/uL (3.5-5.4); RED CELL DISTRIBUTION WIDTH 13.4 % (11.6-16.5); WHITE BLOOD COUNT 6.3 X10^3/uL (3.6-10.0)
[2019-03-18 06:33] LABS: ALANINE AMINOTRANSFERASE 15 Units/L (12-78); ALBUMIN 2.9 g/dL (3.4-5.0); ALKALINE PHOSPHATASE 70 Units/L (46-116); ASPARTATE AMINO TRANSFERASE 11 Units/L (15-37); BLOOD UREA NITROGEN 6 mg/dL (7-18); CALCIUM 8.5 mg/dL (8.5-10.1); CARBON DIOXIDE 27.4 mmol/L (21-32); COR CA(FOR HYPOALB) 9.4 mg/dL (8.5-10.1); CREATININE 0.63 mg/dL (0.55-1.02); TOTAL PROTEIN 6.4 g/dL (6.4-8.2); eGFR NON BLACK RACES > 60 (>60)
[2019-03-18 07:14] LABS: CHLORIDE 105 mmol/L (98-107); COR NA(FOR HYPERGLY) 140 mmol/L (136-145); SODIUM 138 mmol/L (136-145)
[2019-03-18] MEDS ORDERED: PHARMACY CONSULT - DOSE _____ XX SCH (11:00)
[2019-03-18] MEDS: LOVENOX INJ 40 MG SYR SC SCH (13:00)
[2019-03-18] MEDS ORDERED: DEPAKOTE D.R. TAB PO ONE ×2 (14:30→21:11)
[2019-03-18] MEDS: DEPAKOTE D.R. TAB PO SCH ×2 (14:53→21:40)
[2019-03-18] MEDS ORDERED: ROCEPHIN VIAL 1 GRAM 1 G in NS 100 ML IV + SPIKE MINIBAG* 100 ML IV SCH (21:00)
[2019-03-18] MEDS ORDERED: THIORIDAZINE 100 MG PO SCH (21:34)
[2019-03-19] MEDS ORDERED: DEPAKOTE D.R. TAB PO ONE ×2 (05:49→13:40)
[2019-03-19 06:12] LABS: BASOPHILS # (AUTO) 0.1 X10^3/uL (0.0-0.1); EOSINOPHILS # (AUTO) 0.1 x10^3/uL (0.0-0.2); EOSINOPHILS % (AUTO) 1.6 % (0.9-2.9); HEMATOCRIT 35.4 % (36.0-47.0); HEMOGLOBIN 11.9 g/dL (12.0-16.0); LYMPHOCYTES # (AUTO) 2.3 X10^3/uL (1.3-2.9); LYMPHOCYTES % (AUTO) 46.2 % (21.0-51.0); MEAN CORPUSCULAR HEMOGLOBIN 30.9 pg (27.0-34.0); MEAN CORPUSCULAR HGB CONC 33.6 g/dL (33.0-35.0); MEAN CORPUSCULAR VOLUME 91.8 fL (80.0-100.0); MEAN PLATELET VOLUME 7.7 fL (7.4-11.0); MONOCYTES # (AUTO) 0.5 x10^3/uL (0.3-0.8); NEUTROPHILS # (AUTO) 2.1 x10^3/uL (2.2-4.8); NEUTROPHILS % (AUTO) 41.2 % (42.0-75.0); PLATELET COUNT 278 X10^3/uL (150.0-450.0); RED BLOOD COUNT 3.86 X10^6/uL (3.5-5.4); RED CELL DISTRIBUTION WIDTH 13.8 % (11.6-16.5); WHITE BLOOD COUNT 5.1 X10^3/uL (3.6-10.0)
[2019-03-19 06:37] LABS: ALANINE AMINOTRANSFERASE 17 Units/L (12-78); ALBUMIN 2.8 g/dL (3.4-5.0); ALKALINE PHOSPHATASE 59 Units/L (46-116); ASPARTATE AMINO TRANSFERASE 11 Units/L (15-37); BLOOD UREA NITROGEN 7 mg/dL (7-18); CALCIUM 8.5 mg/dL (8.5-10.1); CARBON DIOXIDE 27.9 mmol/L (21-32); CHLORIDE 105 mmol/L (98-107); COR CA(FOR HYPOALB) 9.5 mg/dL (8.5-10.1); COR NA(FOR HYPERGLY) 141 mmol/L (136-145); CREATININE 0.57 mg/dL (0.55-1.02); SODIUM 140 mmol/L (136-145); TOTAL PROTEIN 6.2 g/dL (6.4-8.2); eGFR NON BLACK RACES > 60 (>60)
[2019-03-19] MEDS: DEPAKOTE D.R. TAB PO SCH ×2 (06:40→14:04)
[2019-03-19] MEDS ORDERED: KLOR-CON PO PRN (07:24)
[2019-03-19] MEDS ORDERED: MICRO K EXTEN CAP 10 MEQ PO PRN (07:24)
[2019-03-19] MEDS ORDERED: K-RIDER 10 MEQ/NS 100 ML 10 MEQ/100 ML BAG IV PRN (07:24)
[2019-03-19] MEDS ORDERED: K-DUR TAB 20 MEQ PO PRN (07:24)
[2019-03-19] MEDS ORDERED: POTASSIUM CHL 40 MEQ/NS 0.45% 500 ML IV PRN (07:24)
[2019-03-19] MEDS ORDERED: POTASSIUM CHLORIDE LIQ 20 MEQ UDC PO PRN (07:24)
[2019-03-19] MEDS ORDERED: POTASSIUM CHL 60 MEQ/NS 0.45% 500 ML IV PRN (07:24)
[2019-03-19] MEDS ORDERED: PATIENT'S HOME MEDICATION (Oxybutynin Chloride [Oxybutynin Chloride] 10 MG) PO SCH (09:00)
[2019-03-19] MEDS ORDERED: GLUCOPHAGE PO SCH (09:00)
[2019-03-19] MEDS ORDERED: JANUVIA PO SCH (09:00)
[2019-03-19] MEDS ORDERED: ZETIA TAB 10 MG PO SCH (09:00)
[2019-03-19] MEDS ORDERED: RISPERIDONE 2 MG PO SCH (09:00)
[2019-03-19] MEDS ORDERED: RisperDAL TAB 1 MG PO SCH ×2 (09:00→21:00)
[2019-03-19] MEDS: NS 1000 ML 1,000 ML IV SCH (09:00)
[2019-03-19] MEDS ORDERED: THIORIDAZINE 50 MG PO SCH (09:00)
[2019-03-19] MEDS ORDERED: OXYBUTYNIN CHLORIDE ER PO SCH (09:00)
[2019-03-19] MEDS ORDERED: TOPROL XL PO SCH (09:00)
[2019-03-19] MEDS: LOVENOX INJ 40 MG SYR SC SCH (09:08)
[2019-03-19 18:18] VITALS: BP 127/58
[2019-03-19] MEDS ORDERED: SNACK - Diabetic Appropriate PO SCH (20:00)
[2019-03-19] MEDS ORDERED: EZETIMIBE PO SCH (21:00)
[2019-03-19] MEDS ORDERED: ZOCOR TAB 40 MG PO SCH (21:00)
[2019-03-19] MEDS ORDERED: RISPERIDONE 4 MG PO SCH (21:00)
[2019-03-19] MEDS ORDERED: PATIENT'S HOME MEDICATION (Simvastatin 1 TAB) PO SCH (21:00)
== END 2019-03-19 18:25 | disposition home or self-care (01) ==
LOC: MED/SURG
PROVIDERS: ADMIT Internal Medicine; ATTEND Internal Medicine
DX: F60.9 Personality disorder, unspecified; B96.1 Klebsiella pneumoniae [K. pneumoniae] as the cause of diseases classified elsewhere; F70 Mild intellectual disabilities; E11.65 Type 2 diabetes mellitus with hyperglycemia; E78.2 Mixed hyperlipidemia; E87.5 Hyperkalemia; E55.9 Vitamin D deficiency, unspecified; F30.10 Manic episode without psychotic symptoms, unspecified; R90.82 White matter disease, unspecified; R41.82 Altered mental status, unspecified; R30.0 Dysuria; R44.3 Hallucinations, unspecified
CPT/HCPCS: 36415; 70450; 80053; 80164; 81001; 83036; 83735; 85025; 87086; 87088; 87186; 96367; 96372; A4216; A4222; G0378; J0696; J1650; J7030; J7050